=== PATIENT | female | born 1985 | race Caucasian/White ===

== ENCOUNTER 2020-06-24 14:15 | Emergency (ER) | payer OTHER ==
[~2020-06-24] VITALS: Ht 177.8 cm; Wt 158.8 kg
[2020-06-24 14:23] VITALS: BP 146/88
== END 2020-06-24 15:07 | disposition home or self-care (01) ==
LOC: ER 14:15
DX: M54.2 Cervicalgia (principal); M43.6 Torticollis; R42 Dizziness and giddiness; Z88.0 Allergy status to penicillin; Z88.2 Allergy status to sulfonamides; V49.49XA Driver injured in collision with other motor vehicles in traffic accident, initial encounter; Y93.I9 Activity, other involving external motion; Y92.488 Other paved roadways as the place of occurrence of the external cause; Y99.8 Other external cause status